=== PATIENT | female | born 1980 | race Caucasian/White ===

== ENCOUNTER 2018-05-23 16:08 | Inpatient (IN) | payer MEDICAID ==
[~2018-05-23] VITALS: Ht 167.6 cm; Wt 96.2 kg
[2018-05-23 16:26] VITALS: Ht 167.6 cm; Wt 96.2 kg
[2018-05-23] MEDS ORDERED: CHILDREN'S100 MG/52 PO (22:35)
[2018-05-23 23:49] VITALS: BP 102/62
[2018-05-24 02:50] LABS: CHOLESTEROL/HDL RATIO 4.1; PHOSPHOROUS 3.1 mg/dL (2.5-4.9)
[2018-05-24 02:57] LABS: T3 TOTAL 0.94 ng/mL
[2018-05-24 03:15] LABS: FREE T4 0.79 ng/dL (0.76-1.46); T4(THYROXINE) 6.7 ug/dL (4.7-13.3)
[2018-05-24 05:39] VITALS: BP 107/61
[2018-05-24 08:23] LABS: microscopic required? YES; urine erythrocyte NEGATIVE (NEGATIVE)
[2018-05-24 09:27] VITALS: BP 101/54
[2018-05-24 14:05] VITALS: BP 104/52
[2018-05-24 14:50] LABS: AMPHETAMINE QUAL UR NONE DETECTED (See below)
[2018-05-24 17:53] VITALS: BP 96/55
[2018-05-24 20:31] VITALS: BP 106/58
[2018-05-25 05:22] VITALS: BP 97/62
[2018-05-25 07:28] LABS: BASOPHIL % 0.2 % (0-2); PLATELET COUNT 236 x10^3mcL (130-400); RED CELL DISTRIBUTION WIDTH 13.5 % (11.5-14.5)
[2018-05-25 07:48] LABS: CALCIUM 7.6 mg/dL (8.5-10.1); CARBON DIOXIDE 22.7 mmol/L (21-32); CHLORIDE SERUM 108 mmol/L (98-107); CREATININE SERUM 0.8 mg/dL (0.6-1.0); GFR1 > 60 mL/min; GLUCOSE SERUM 85 mg/dL (74-106); POTASSIUM SERUM 3.5 mmol/L (3.5-5.1); SODIUM SERUM 141 mmol/L (136-145)
[2018-05-25 10:04] VITALS: BP 101/62
[2018-05-25 13:20] VITALS: BP 102/62
[2018-05-25] MEDS ORDERED: CYCLOBENZAPRINE5 MG PO (14:52)
[2018-05-25] MEDS ORDERED: MELOXICAM7.5 M1 PO (14:52)
[2018-05-25 15:09] VITALS: BP 102/62
== END 2018-05-25 16:30 | disposition home or self-care (01) | DRG 351 ==
LOC: ED 16:08 → DU 22:34 → MU 22:34 → DU 05-24 06:36
PROVIDERS: Family Medicine
DX: S76.011A Strain of muscle, fascia and tendon of right hip, initial encounter (principal); E78.5 Hyperlipidemia, unspecified; X58.XXXA Exposure to other specified factors, initial encounter; Y93.89 Activity, other specified; Y92.018 Other place in single-family (private) house as the place of occurrence of the external cause; Z68.32 Body mass index [BMI] 32.0-32.9, adult
CPT/HCPCS: 83880; 84439; J1100; J1630; J1885; J2060; J2270; J7030

== ENCOUNTER 2019-01-24 22:11 | Emergency (ER) | payer MEDICAID ==
[~2019-01-24] VITALS: Ht 167.6 cm; Wt 81.6 kg
[~2019-01-24 22:11] MED LIST: CHILDREN'S100 MG/52 PO; CYCLOBENZAPRINE5 MG PO; MELOXICAM7.5 M1 PO
[2019-01-24 23:04] VITALS: Ht 167.6 cm; Wt 81.6 kg
[2019-01-25 04:14] VITALS: BP 113/66
== END 2019-01-25 04:16 | disposition home or self-care (01) ==
LOC: ED 22:11
DX: R51 Headache (principal); R42 Dizziness and giddiness; Z88.6 Allergy status to analgesic agent; Z90.49 Acquired absence of other specified parts of digestive tract
CPT/HCPCS: J1200; J2765; J7030; J8597

== ENCOUNTER 2020-02-11 20:38 | Emergency (ER) | payer MEDICAID ==
[~2020-02-11] VITALS: Ht 167.6 cm; Wt 93.0 kg
[2020-02-11 20:46] VITALS: Ht 167.6 cm; Wt 93.0 kg
[2020-02-11 22:57] VITALS: BP 117/70
== END 2020-02-11 22:57 | disposition home or self-care (01) ==
LOC: ED 20:38
DX: G43.909 Migraine, unspecified, not intractable, without status migrainosus (principal); R11.2 Nausea with vomiting, unspecified; Z88.5 Allergy status to narcotic agent; Z90.89 Acquired absence of other organs; Z90.49 Acquired absence of other specified parts of digestive tract; Z98.890 Other specified postprocedural states
CPT/HCPCS: J1200; J1885; J2765